=== PATIENT | male | born 1935 | race Caucasian/White ===

== ENCOUNTER 2016-08-14 23:00 | Emergency (ER) | payer MEDICAID ==
[~2016-08-14] VITALS: Ht 157.5 cm; Wt 90.9 kg
[2016-08-14 23:22] VITALS: Ht 157.5 cm; Wt 90.9 kg
--- NOTE | 2016-08-15 00:49 | RADRPT ---
PROCEDURE: CT BRAIN WITHOUT CONTRAST CLINICAL INDICATION: 81-year-old male with trauma. TECHNIQUE: The study was performed utilizing [employer] VCT 64-slice CT scanner. Direct axial sections were obtained from the foramen magnum to the vertex without the use of intravenous contrast material. Sagittal and coronal reformations were obtained. Automated exposure control and iterativ e reconstruction techniques were utilized for this examination. The study was repeated secondary to motion artifact. The images were viewed on a PACS workstation. CTD/vol = 90.0 mGy; Total Exam DLP = 1620.5 mGy-cm. COMPARISON: None. FINDINGS: There is moderate degree of diffuse cortical and central atrophy with compensatory ventricular enlar gement. There is no evidence for mass effect or midline shift. There are periventricular areas of decreased density consistent with microangiopathic ischemic changes. There is no evidence for acute intra or extra-axial blood. Calcifications are seen within the intracranial carotid arteries bilate rally. The bony calvarium is intact. There is mild mucosal thickening identified within the right et hmoid air cells and maxillary sinus. No air-fluid levels are noted. The mastoid air cells are with out significant soft tissue. IMPRESSION: 1. Moderate diffuse atrophy. 2. Microangiopathic ischemic changes. 3. Vascular calcifications. 4. Mild mucosal thickening right ethmoid air cells and maxillary sinus. .Andrew Hinojosa MD, Date Time Electronically viewed and signed by .Andrew Hinojosa MD, on 08/15/2016 00:49 .M/
--- NOTE | 2016-08-15 01:34 | ERD ---
ER Documentation Chief Complaint Date/Time DATE: 08/15/16 TIME: 01:33 Chief Complaint BIBA FOR ETOH INTOXICATION ALOC HPI This is an 81-year-old male brought in by a months for EtOH intoxication. Patient was altered in front of a liquor store. No evidence of trauma. Patient arousable. ROS All systems reviewed and are negative except as per history of present illness. Allergies Allergies: Coded Allergies: No Known Allergy (Unverified , 08/14/16) PMhx/Soc Medical and Surgical Hx: pt denies Medical Hx, pt denies Surgical Hx Hx Alcohol Use: Yes Hx Substance Use: No Hx Tobacco Use: Yes Smoking Status: Current every day smoker Physical Exam Vitals Vital Signs Date Time Temp Pulse Resp B/P Pulse Ox O2 Delivery O2 Flow Rate FiO2 08/14/16 23:22 96.7 70 16 100/54 95 Physical Exam Const: [] Head: Atraumatic Eyes: Normal Conjunctiva ENT: Normal External Ears, Nose and Mouth. Neck: Full range of motion..~ No meningismus. Resp: Clear to auscultation bilaterally Cardio: Regular rate and rhythm, no murmurs Abd: Soft, non tender, non distended. Normal bowel sounds Skin: No petechiae or rashes Back: No midline or flank tenderness Ext: No cyanosis, or edema Neur: Awake and alert Psych: Normal Mood and Affect Procedures/MDM CT of the head was negative for trauma. Medical decision-makin-year-old gentleman with acute alcohol intoxication. Is been allowed to sober. Patient will be discharged under his own recognizance. Upon discharge patient alert and oriented 4 with goal oriented speech and non-ataxic gait. Patient will be discharged with family. Departure Diagnosis: Primary Impression: Alcoholic intoxication Complication of substance-induced condition: uncomplicated Qualified Code: F10.120 - Alcoholic intoxication, uncomplicated Condition: Stable Patient Instructions: Alcohol Intoxication JAMISON GOMES Aug 15, 2016 01:34
[2016-08-15 04:00] VITALS: BP 98/58; PULSE 72; RESP 18; TEMP 97.3
== END 2016-08-15 01:33 | disposition home or self-care (01) ==
LOC: EDBD 23:00 → E/R 23:00
DX: F10.120 Alcohol abuse with intoxication, uncomplicated (principal); F17.210 Nicotine dependence, cigarettes, uncomplicated; G93.89 Other specified disorders of brain
CPT/HCPCS: 70450; Z7502

== ENCOUNTER 2016-10-11 15:09 | Emergency (ER) | payer MEDICAID ==
[~2016-10-11] VITALS: Ht 180.3 cm; Wt 86.0 kg
[2016-10-11] MEDS ORDERED: MAGNESIUM SULFATE 2 GM, MULTIVITAMINS 10 ML, THIAMINE 100 MG, FOLIC ACID 1 MG in SOD CH... IV STA (15:13)
[2016-10-11 15:42] VITALS: Ht 180.3 cm; Wt 86.0 kg
[2016-10-11 15:50] LABS: ADD SCAN DIFF NO
[2016-10-11 15:52] LABS: ABNORMAL IP MESSAGE 1; BASOPHILS % 0.6 % (0.0-2.0); EOSINOPHILS # 0.1 10^3/ul (0.0-0.5); EOSINOPHILS % 2.4 % (0.0-7.0); HEMATOCRIT 30.1 % (42.0-52.0); HEMOGLOBIN 8.4 g/dl (14.0-18.0); LYMPHOCYTES # 1.6 10^3/ul (0.8-2.9); LYMPHOCYTES % 48.8 % (15.0-51.0); MEAN CORPUSCULAR HEMOGLOBIN 18.9 pg (29.0-33.0); MEAN CORPUSCULAR HGB CONC 27.9 g/dl (32.0-37.0); MEAN CORPUSCULAR VOLUME 67.8 fl (82.0-101.0); MEAN PLATELET VOLUME 8.4 fl (7.4-10.4); MONOCYTE # 0.1 10^3/ul (0.3-0.9); MONOCYTES % 3.6 % (0.0-11.0); NEUTROPHIL # 1.5 10^3/ul (1.6-7.5); NEUTROPHILS % 44.3 % (39.0-77.0); PLATELET COUNT 249 10^3/UL (140-415); RED BLOOD COUNT 4.44 10^6/ul (4.70-6.10); WHITE BLOOD COUNT 3.3 10^3/ul (4.8-10.8)
--- NOTE | 2016-10-11 15:54 | ERD ---
ER Documentation Chief Complaint Date/Time DATE: 10/11/16 TIME: 15:48 Chief Complaint ETOH HPI This is an 81-year-old male that was brought into the emergency department by EMS after he was found sleeping on a sidewalk next to an empty bottle of vodka. EMS indicated there is no signs of trauma or drug paraphernalia however the patient appeared drowsy and did smell of alcohol. The patient normally ambulates with a cane. The patient did not complain of a headache. The patient denies any abdominal pain. He denies any hemoptysis hematemesis or melanotic stools. The patient's speech is slurred and history is very limited. ROS All systems reviewed and are negative except as per history of present illness. Allergies Allergies: Coded Allergies: No Known Allergy (Unverified , 08/14/16) PMhx/Soc Medical and Surgical Hx: pt denies Medical Hx, pt denies Surgical Hx Hx Alcohol Use: Yes Hx Substance Use: No Hx Tobacco Use: Yes Smoking Status: Unknown if ever smoked Physical Exam Vitals Vital Signs Date Time Temp Pulse Resp B/P Pulse Ox O2 Delivery O2 Flow Rate FiO2 10/11/16 15:42 54 16 113/67 96 Physical Exam Constitutional:Well-developed. Well-nourished. Patient lying supine. HEENT:Normocephalic. Atraumatic.Pupils were equal round reactive to light. Moist mucous membranes.No tonsillar exudates. No nasoseptal hematoma. No hemotympanum Neck: No nuchal rigidity. No lymphadenopathy. No posterior cervical spine tenderness or step-offs. Respiratory: Not using accessory muscles of respiration.Lungs were clear to auscultation bilaterally. No rhonchi. No rales. No wheezing. Cardiovascular: Regular rate regular rhythm.No murmurs. No rubs were appreciated.S1, S2 normal. Distal pulses are palpable 2+ bilaterally. GI: Abdomen was soft. Nontender. Non Distended. No pulsatile abdominal masses or bruits. No rebound. No guarding. Bowel sounds were present and normal. No flank ecchymosis. No periumbilical ecchymosis Muscle skeletal: Full range of motion of both the upper and lower extremities bilaterally.Normal muscle tone.No assymetrical calf tenderness or swelling. Lower extremities are equal length and symmetrical with no internal or external rotation. Skin: No petechia, no purpura. No lesions on the palms or the soles of the feet. No maculopapular rash. NEURO: Patient lying supine with eyes closed and would open eyes in response to pain, followed verbal command, speech was slurred with no facial droop. Gait not observed as patient was too altered to ambulate. Results 24 hrs Current Medications Medications (Trade) Dose Ordered Sig/Seth Route PRN Reason Start Time Stop Time Status Last Admin Dose Admin Magnesium Sulfate/ Multivitamins/ Thiamine HCl/ Folic Acid/Sodium Chloride (Magnesium Sulfate/Mvi Adult/ Vitamin B1/Folic Acid/NS) 1,015.2 ml @ 500 mls/ hr Q2H2M STAT IV 10/11/16 15:13 10/11/16 17:14 Procedures/MDM The patient presented to the emergency department with an acute and persistent change in their mental status. The differential diagnosis is diverse however reversible causes such as hypoglycemia, opiate overdose, thiamine deficiency were immediately considered. The patient was placed on a cardiac monitor technician, continuous pulse oximetry and IV access was established. The patients airway was secure however hypoxic events such as anemia, shock, or severe pulmonary disease were all considered as etiologies in this patients presentation. Circulation assessed with good cap refill and did not require fluids or pressure support. Finger stick for rapid glucose determined to be normal. The patient's serum ethanol was elevated. He received a banana bag and I did feel the patient's altered mental status was a result of toxic encephalopathy. The patient remained in the emergency department until clinical sobriety. I also obtained a CT scan of the patient's head which showed no acute intracerebral hemorrhage mass-effect or midline shift and this was read by both myself and the radiologist Departure Diagnosis: Primary Impression: Alcoholic intoxication Complication of substance-induced condition: uncomplicated Qualified Code: F10.120 - Alcoholic intoxication, uncomplicated Additional Impression: Toxic encephalopathy Condition: REJI Delacruz October 11, 2016 15:53
[2016-10-11 16:12] LABS: ALANINE AMINOTRANSFERASE 30 IU/L (13-69); ALBUMIN 4.2 g/dl (3.3-4.9); ALBUMIN/GLOBULIN RATIO 1.13; ALKALINE PHOSPHATASE 78 IU/L (42-121); ANION GAP 18 (8-16); ASPARTATE AMINO TRANSFERASE 37 IU/L (15-46); BILIRUBIN,INDIRECT 0.4 mg/dl (0-1.1); BILIRUBIN,TOTAL 0.4 mg/dl (0.2-1.3); BLOOD UREA NITROGEN 12 mg/dl (7-20); CALCIUM 8.2 mg/dl (8.4-10.2); CARBON DIOXIDE 25 mmol/L (21-31); CHLORIDE 109 mmol/L (97-110); CREATININE 0.44 mg/dl (0.61-1.24); GLUCOSE 86 mg/dl (70-220); POTASSIUM 3.4 mmol/L (3.5-5.1); SODIUM 149 mmol/L (135-144); TOTAL PROTEIN 7.9 g/dl (6.1-8.1)
--- NOTE | 2016-10-11 16:12 | RADRPT ---
PROCEDURE: CT brain without contrast CLINICAL INDICATION: Altered mental status. Suspected intoxication TECHNIQUE: A CT of the brain was performed utilizing axial sections from the skull base through th e vertex without contrast. Sagittal and coronal images were also reformatted. The exam CTDIvol = 44. 40 mGy and DLP = 720.23 mGy-cm. COMPARISON: 08/15/2016 FINDINGS: No acute intracranial hemorrhage is identified. There is no mass effect or midline shift. No extra -axial fluid collection is seen. The ventricles and sulci are normal in size and configuration for the patient's provided age of 81 years consistent with age-appropriate generalized atrophy. Mild lo w attenuation of the subcortical and periventricular white matter is again seen, nonspecific but mos t likely the sequela of chronic small vessel ischemia. Atherosclerotic calcification of the caver[place] us internal carotid and vertebral arteries is present and new. Tinsley-white differentiation is preser neli with no findings to suggest an acute ischemic infarct. The fourth ventricle is midline and there is no density alteration within the shawn or cerebellum. The osseous structures are unremarkable. The mastoid air cells and visualized paranasal sinuses are clear. RPTAT:HJJR IMPRESSION: Generalized cerebral atrophy appropriate for the patient's provided age without evidence of acute in tracranial abnormality or findings to explain the patient's provided history, the appearance of the brain stable compared to 08/15/2016. Physician Lizeth Date Time Electronically viewed and signed by Physician Lizeth on 10/11/2016 16:12 /
[2016-10-11 16:32] LABS: ACETAMINOPHEN < 10.0 ug/ml (10.0-30.0); SALICYLATE < 1.0 mg/dl (5.0-30.0)
[2016-10-11] MEDS ORDERED: SOD CHLORIDE 0.9% 1,000 ML IV STA (16:32)
[2016-10-12 07:39] VITALS: BP 141/70; PULSE 83; RESP 20; TEMP 98.7
== END 2016-10-12 07:30 | disposition home or self-care (01) ==
LOC: E/R 15:09
DX: F10.120 Alcohol abuse with intoxication, uncomplicated (principal); R40.2242 Coma scale, best verbal response, confused conversation, at arrival to emergency department; G92 Toxic encephalopathy; T51.91XA Toxic effect of unspecified alcohol, accidental (unintentional), initial encounter; R40.2362 Coma scale, best motor response, obeys commands, at arrival to emergency department; R40.2142 Coma scale, eyes open, spontaneous, at arrival to emergency department; Z87.891 Personal history of nicotine dependence
CPT/HCPCS: 70450; 80053; 80306; 85025; 96374; J3411; J3475; J7030; Z7502; Z7610

== ENCOUNTER 2016-11-25 16:37 | Emergency (ER) | payer MEDICAID ==
[~2016-11-25] VITALS: Ht 170.2 cm; Wt 85.0 kg
[2016-11-25] MEDS ORDERED: SOD CHLORIDE 0.9% 1,000 ML IV STA (16:43)
[2016-11-25] MEDS ORDERED: FOLIC ACID 1 MG, THIAMINE 100 MG, MULTIVITAMINS 10 ML, MAGNESIUM SULFATE 2 GM in SOD CH... IV STA (16:43)
--- NOTE | 2016-11-25 16:55 | ERD ---
ER Documentation Chief Complaint Date/Time DATE: 11/25/16 TIME: 16:51 Chief Complaint HPI Patient is an 81-year-old male who was found sitting on a curb with altered mental status due to alcohol intoxication. His daughter was with him. There is no report of trauma. She states that he sometimes leaves home to go drinking and has had similar episodes in the past. The patient was unable to give history. He was breathing adequately. ROS All systems reviewed and are negative except as per history of present illness. Medications Home Meds Unable to Obtain Active Prescriptions or Reported Meds Allergies Allergies: Coded Allergies: No Known Allergy (Unverified , 08/14/16) PMhx/Soc Past medical history: Alcohol abuse, other history unobtainable Past surgical history: Unobtainable Social history: Heavy alcohol use, other history unobtainable Hx Alcohol Use: Yes Hx Substance Use: No Hx Tobacco Use: Yes FmHx Unable to ascertain Physical Exam Vitals Vital Signs Date Time Temp Pulse Resp B/P Pulse Ox O2 Delivery O2 Flow Rate FiO2 11/25/16 16:58 91.8 86 16 106/72 94 Physical Exam Const: Unresponsive to sternal rub, heavy odor of alcohol Head: Atraumatic Eyes: Normal Conjunctiva, no pallor, no icterus ENT: Normal External Ears, Nose and Mouth. Dry mucous membranes Neck: No palpable step-off, no visible deformity Resp: Clear to auscultation bilaterally no wheezes, no rales Cardio: Mild tachycardia, regular rhythm, no murmurs Abd: Soft, non tender, non distended. Skin: No petechiae or rashes Back: No midline or flank tenderness Ext: No cyanosis, or edema Neur: Unresponsive to sternal rub, unable to assess further due to mental status Psych: Unable to assess Result Diagram: 11/25/16 1655 11/25/16 1655 Results 24 hrs Laboratory Tests Test 11/25/16 16:55 White Blood Count 3.310^3/ul Red Blood Count 4.2210^6/ul Hemoglobin 8.3g/dl Hematocrit 28.4% Mean Corpuscular Volume 67.3fl Mean Corpuscular Hemoglobin 19.7pg Mean Corpuscular Hemoglobin Concent 29.2g/dl Red Cell Distribution Width 20.8% Platelet Count 31642^3/UL Mean Platelet Volume 9.0fl Neutrophils % 47.5% Lymphocytes % 42.0% Monocytes % 5.7% Eosinophils % 3.9% Basophils % 0.6% Nucleated Red Blood Cells % 0.0/100WBC Neutrophils # 1.610^3/ul Lymphocytes # 1.410^3/ul Monocytes # 0.210^3/ul Eosinophils # 0.110^3/ul Basophils # 0.010^3/ul Nucleated Red Blood Cells # 0.010^3/ul Sodium Level 144mmol/L Potassium Level 3.2mmol/L Chloride Level 106mmol/L Carbon Dioxide Level 21mmol/L Anion Gap 20 Blood Urea Nitrogen 11mg/dl Creatinine 0.54mg/dl Glucose Level 83mg/dl Calcium Level 8.3mg/dl Total Bilirubin 0.3mg/dl Direct Bilirubin 0.00mg/dl Indirect Bilirubin 0.3mg/dl Aspartate Amino Transf (AST/SGOT) 43IU/L Alanine Aminotransferase (ALT/SGPT) 36IU/L Alkaline Phosphatase 79IU/L Total Protein 7.9g/dl Albumin 4.8g/dl Globulin 3.10g/dl Albumin/Globulin Ratio 1.54 Ethyl Alcohol Level 389.0mg/dl Current Medications Medications (Trade) Dose Ordered Sig/Seth Route PRN Reason Start Time Stop Time Status Last Admin Dose Admin Folic Acid 1 mg/ Thiamine HCl 100 mg/Multivitamins 10 ml/Magnesium Sulfate 2 gm/ Sodium Chloride 1,015.2 ml @ 500 mls/ hr Q2H2M STAT IV 11/25/16 16:43 11/25/16 18:44 DC Sodium Chloride (NS) 1,000 ml @ 1,000 mls/hr Q1H STAT IV 11/25/16 16:43 11/25/16 17:42 DC Potassium Chloride (Klor-Con 20) 20 meq ONCE STAT PO 11/25/16 18:24 11/25/16 18:26 DC Procedures/MDM MDM: Patient is an 81-year-old male who presents with alcohol intoxication. His alcohol level is over 350. He was initially unresponsive to sternal rub, but on reassessment he opens his eyes and speaks with slurred speech. There is no history or clear signs of trauma, but given that the patient is not fully valuable, I will order a head CT. The patient has hypokalemia that is mild. I have ordered p.o. potassium for when he is awake and alert and able to take the medication. The patient signed out to Dr. Shah, who will follow up on the results of the head CT. Plan is to reassess the patient when he is clinically sober and if there are no signs of other medical conditions, to discharge him home. I have ordered IV fluids and a banana bag. The patient is anemic, but his hemoglobin is stable from prior visits. Departure Diagnosis: Primary Impression: Alcoholic intoxication Complication of substance-induced condition: uncomplicated Qualified Code: F10.120 - Alcoholic intoxication, uncomplicated Additional Impressions: Hypokalemia Anemia Anemia type: unspecified type Qualified Code: D64.9 - Anemia, unspecified type Condition: Stable JANIE HAQUE MD Nov 25, 2016 16:55
[2016-11-25 16:58] VITALS: Ht 170.2 cm; Wt 85.0 kg
[2016-11-25 17:08] LABS: ADD SCAN DIFF NO
[2016-11-25 17:10] LABS: BASOPHILS % 0.6 % (0.0-2.0); EOSINOPHILS # 0.1 10^3/ul (0.0-0.5); EOSINOPHILS % 3.9 % (0.0-7.0); HEMATOCRIT 28.4 % (42.0-52.0); HEMOGLOBIN 8.3 g/dl (14.0-18.0); LYMPHOCYTES # 1.4 10^3/ul (0.8-2.9); MEAN CORPUSCULAR HEMOGLOBIN 19.7 pg (29.0-33.0); MEAN CORPUSCULAR HGB CONC 29.2 g/dl (32.0-37.0); MEAN CORPUSCULAR VOLUME 67.3 fl (82.0-101.0); MONOCYTE # 0.2 10^3/ul (0.3-0.9); MONOCYTES % 5.7 % (0.0-11.0); NEUTROPHIL # 1.6 10^3/ul (1.6-7.5); NEUTROPHILS % 47.5 % (39.0-77.0); PLATELET COUNT 255 10^3/UL (140-415); RED BLOOD COUNT 4.22 10^6/ul (4.70-6.10); RED CELL DISTRIBUTION WIDTH 20.8 % (11.5-14.5); WHITE BLOOD COUNT 3.3 10^3/ul (4.8-10.8)
[2016-11-25 17:35] LABS: ALBUMIN 4.8 g/dl (3.3-4.9); ALBUMIN/GLOBULIN RATIO 1.54; BILIRUBIN,INDIRECT 0.3 mg/dl (0-1.1); BILIRUBIN,TOTAL 0.3 mg/dl (0.2-1.3); CALCIUM 8.3 mg/dl (8.4-10.2); CREATININE 0.54 mg/dl (0.61-1.24); POTASSIUM 3.2 mmol/L (3.5-5.1); TOTAL PROTEIN 7.9 g/dl (6.1-8.1)
[2016-11-25] MEDS ORDERED: POTASSIUM CHLORIDE (SR) 20 MEQ TAB PO STA (18:24)
--- NOTE | 2016-11-25 19:14 | RADRPT ---
PROCEDURE: CT Head without contrast. CLINICAL INDICATION: Altered mental status TECHNIQUE: The study was performed utilizing a GE 64-slice multidetector CT scanner. Direct spiral axial CT images of the brain were obtained from the vertex to the skull base without contrast. Eliecer nal and sagittal reformatted images are provided. The CTDI vol is 42.81 mGy and the DLP is 720.23 mG y-cm. The images were reviewed on a PACS workstation. COMPARISON: 10/11/2016 FINDINGS: Mild to moderate diffuse atrophy is seen with a compensatory ventricular enlargement. Mild white ma tter disease in the periventricular and deep white matter is seen. The trotter-white matter differenti ation is maintained. No intra or extra-axial fluid collection or mass effect or shift in the midlin e structures is seen. The visualized paranasal sinuses, mastoid air cells, orbits, and calvarium ar e unremarkable. Vascular calcifications are seen. IMPRESSION: 1. No acute intracranial pathology. 2. Stable mild to moderate diffuse volume loss and mild chronic microvascular ischemic changes. RPTAT: HPNM Physician Viola Date Time Electronically viewed and signed by Physician Viola on 11/25/2016 19:14 /
[2016-11-25 22:30] VITALS: TEMP 91.8
[2016-11-26 09:55] VITALS: BP 138/88; PULSE 77; RESP 18
== END 2016-11-26 10:00 | disposition home or self-care (01) ==
LOC: E/R 16:37
DX: F10.120 Alcohol abuse with intoxication, uncomplicated (principal); R40.2242 Coma scale, best verbal response, confused conversation, at arrival to emergency department; E87.6 Hypokalemia; D64.9 Anemia, unspecified; R40.2142 Coma scale, eyes open, spontaneous, at arrival to emergency department; R40.2362 Coma scale, best motor response, obeys commands, at arrival to emergency department; Z87.891 Personal history of nicotine dependence
CPT/HCPCS: 70450; 80053; 80306; 85025; J3411; J3475; J7030; Z7610; 96374